=== PATIENT | female | born 1985 | race Caucasian/White ===

== ENCOUNTER → 2020-10-14 16:00 | Outpatient (BNVA) | payer MEDICAID, SELFPAY | PROVIDERS: Family Provider Internal Medicine; PCP Internal Medicine; Visit Provider Nurse Practitioner Family | DX: N30.20 Other chronic cystitis without hematuria (principal); B37.3 Candidiasis of vulva and vagina; R11.0 Nausea | CPT/HCPCS: 81003; 87077; 87086; 87184 ==

== ENCOUNTER → 2020-11-05 08:55 | Outpatient (BNVA) | payer MEDICAID, SELFPAY | PROVIDERS: Family Provider Internal Medicine; PCP Internal Medicine; Visit Provider Urology | DX: N30.20 Other chronic cystitis without hematuria (principal) | CPT/HCPCS: 81003 ==

== ENCOUNTER → 2021-01-13 15:52 | Outpatient (BNVA) | payer MEDICAID, SELFPAY | PROVIDERS: Family Provider Internal Medicine; PCP Internal Medicine; Visit Provider Urology | DX: N30.20 Other chronic cystitis without hematuria (principal) | CPT/HCPCS: 81003 ==

== ENCOUNTER → 2021-03-02 11:32 | Outpatient (BNVA) | payer MEDICAID, SELFPAY | PROVIDERS: Family Provider Internal Medicine; PCP Internal Medicine; Visit Provider Family Medicine | DX: Z01.812 Encounter for preprocedural laboratory examination (principal); Z20.822 Contact with and (suspected) exposure to COVID-19 | CPT/HCPCS: 87635 ==

== ENCOUNTER → 2021-03-30 12:08 | Outpatient (BNVA) | payer MEDICAID, SELFPAY | PROVIDERS: Family Provider Internal Medicine; PCP Internal Medicine; Visit Provider Urology | DX: N30.20 Other chronic cystitis without hematuria (principal); R30.0 Dysuria | CPT/HCPCS: 87077; 87086; 87184 ==

== ENCOUNTER 2021-04-01 14:16 | Outpatient (CLI) | payer MEDICAID, SELFPAY ==
[2021-04-01 14:45] LABS: Basophils % 0.6 %; Eosinophils # 0.1 10^3/uL (0.0-0.8); Hematocrit 43.8 % (37.0-47.0); Hemoglobin 14.2 g/dL (11.5-15.3); Lymphocytes # 2.6 10^3/uL (0.8-4.8); Lymphocytes % 36.8 %; Mean Corpuscular HGB Conc 32.4 g/dL (30.0-36.0); Mean Corpuscular Hemoglobin 31.8 pg (28.0-34.0); Mean Platelet Volume 9.8 fL (7.4-10.4); Monocytes # 0.4 10^3/uL (0.2-0.9); Monocytes % 6.1 %; Neutrophils # 3.81 10^3/uL (1.8-7.7); Neutrophils % 54.4 %; Nucleated Red Blood Cells % 0 %; Platelet Count 334 10^3/cmm (130-400); Red Blood Count 4.47 10^6/uL (4.1-5.3); Red Cell Distribution Width 11.4 % (12.1-15.1)
== END 2021-04-01 14:17 | disposition home or self-care (01) ==
LOC: LAB 14:21
PROVIDERS: PCP Internal Medicine; Visit Provider Urology
DX: N30.20 Other chronic cystitis without hematuria (principal)
CPT/HCPCS: 81003; 85025

== ENCOUNTER → 2021-04-22 14:54 | Outpatient (BNVA) | payer MEDICAID, SELFPAY | PROVIDERS: PCP Internal Medicine; Visit Provider Nurse Practitioner Family | DX: N30.20 Other chronic cystitis without hematuria (principal) | CPT/HCPCS: 81003 ==

== ENCOUNTER 2021-06-23 16:42 | Emergency (ER) | payer MEDICAID, SELFPAY ==
[2021-06-23 16:57] VITALS: BP 137/100; PULSE 114; RESP 22; TEMP 36.9; O2SAT 97; BMI 22.1
--- NOTE | 2021-06-23 19:07 | CTR_ITS ---
PROCEDURE INFORMATION: Exam: CT Abdomen And Pelvis With Contrast Exam date and time: 06/23/2021 8:57 PM Age: 35 years old Clinical indication: Abdominal pain; Prior surgery; Surgery date: 6+ months; Additional info: Abd pain TECHNIQUE: Imaging protocol: Computed tomography of the abdomen and pelvis with contrast. Radiation optimization: All CT scans at this facility use at least one of these dose optimization techniques: automated exposure control; mA and/or kV adjustment per patient size (includes targeted exams where dose is matched to clinical indication); or iterative reconstruction. Contrast material: OMNI 300; Contrast volume: 95 ml; Contrast route: INTRAVENOUS (IV); COMPARISON: CT Abdomen/Pelvis Renal [id number] 01/03/2018 5:26 PM RADIATION DOSE METRICS: Total DLP (mGy-cm): 1284.52 FINDINGS: Liver: Left hepatic lobe 13 mm cystic structure similar dating back to 05/31/2017 exam, likely benign given stability Gallbladder and bile ducts: Mild intrahepatic biliary dilation. Cholecystectomy. Pancreas: Normal. No ductal dilation. Spleen: Normal. No splenomegaly. Adrenal glands: Normal. No mass. Kidneys and ureters: Left kidney cyst, negative for follow-up. Right kidney punctate nonobstructing calyceal stone. Stomach and bowel: Unremarkable. No obstruction. No mucosal thickening. Appendix: No evidence of appendicitis. Intraperitoneal space: Unremarkable. No free air. No significant fluid collection. Vasculature: Unremarkable. No abdominal aortic aneurysm. Lymph nodes: Unremarkable. No enlarged lymph nodes. Urinary bladder: Unremarkable as visualized. Reproductive: Several left ovarian cysts measuring up to 2.7 cm without surrounding inflammation, likely follicular. Bones/joints: Unremarkable. No acute fracture. Soft tissues: Unremarkable. CT/CT abdomen pelvis w con* [id number] IMPRESSION: 1. Negative for acute inflammatory process in the abdomen or pelvis. 2. Left hepatic lobe 13 mm cystic structure similar dating back to 05/31/2017 exam, likely benign given stability 3. Mild intrahepatic biliary dilation. 4. Cholecystectomy. 5. Several left ovarian cysts measuring up to 2.7 cm without surrounding inflammation, likely follicular. 6. Left kidney cyst, negative for follow-up. 7. Right kidney punctate nonobstructing calyceal stone.
--- NOTE | 2021-06-23 19:08 | ED_ITS ---
HPI - Abdominal Pain General: Chief Complaint: Abdominal Pain Stated Complaint: sent by blood pressure issue/pain in r abdomen Time Seen by Provider: 06/23/21 19:03 Source: patient Mode of arrival: ambulatory Limitations: no limitations History of Present Illness: 35-year-old female has a history of multiple abdominal surgeries. She states that over the last week she been having increasing diffuse abdominal pain with vomiting and diarrhea. She states that she has had her gallbladder out with a hysterectomy and has been told she has had adhesions in the past. States the pain is diffuse rates it an 8 out of 10 currently. States no real worsening factor states that seems to be improved by laying on her left side. Denies any radiation of her pain Associated Symptoms: Reports nausea and vomiting; Denies chills, dysuria and fever(s) Review of Systems Const: Denies: fever(s), chills, body aches or change in appetite Eyes: Denies: blurry vision or eye discomfort ENMT: Denies: throat pain or dental pain Card: Denies: chest pain Resp: Denies: dyspnea GI: Reports: abdominal pain, nausea and vomiting : Denies: dysuria Musc: Denies: neck pain or back pain Skin/Breast: Denies: rash Neuro: Denies: headache(s) Psych: Denies: depression Jeremiah/Lymph: Denies: easy bruising All/Imm: Denies: urticaria PFSH ED PFSH: Medical History Chronic cystitis Yeast vaginitis Family History Mother Autoimmune disorder Social History Smoking and tobacco status: never smoked Alcohol intake: unknown Adopted: No Caregiver/support person: No Lives independently: No Marital status: Current occupational status: employed History of recent travel: No Physical Exam Const: COMMON NORMALS: no acute distress, patient oriented x3 and healthy appearing HENMT: COMMON NORMALS: normocephalic and atraumatic HEAD & SCALP: normocephalic and atraumatic Eye: COMMON NORMALS: Equal, round and reactive pupils present and EOMs intact bilaterally PUPIL: Yes Equal, round and reactive pupils present Neck/C-Spine: COMMON NORMALS: full ROM and supple Chest: COMMONS NORMALS: normal inspection of the chest and normal palpation of entire chest wall Resp: COMMON NORMALS: normal respiratory effort, No retractions, No use of accessory muscles and clear to auscultation bilaterally AUSCULTATION: clear to auscultation bilaterally Cardio: COMMON NORMALS: regular rhythm and No murmurs present (Cardio) RATE: tachycardic RHYTHM: regular rhythm GI: COMMON NORMALS: Normal to inspection, nondistended, normoactive bowel sounds present, Soft to palpation and no masses PALPATION: Yes Soft to palpation OTHER: Diffuse moderate tenderness Extremity: COMMON NORMALS: normal to inspection and full ROM Neuro: COMMON NORMALS: patient oriented x3, moves all extremities and no focal motor deficits Psych: COMMON NORMALS: mental status grossly normal, Normal thought process present and cooperative THOUGHT PROCESS: Normal thought process present Skin: COMMON NORMALS: no rashes or lesions noted and no wounds GENERAL SKIN EXAM: no rashes or lesions noted Course Vital Signs: Vital signs: Vital Signs Temperature 98.5 F 06/23/21 16:57 Pulse Rate 107 H 06/23/21 19:32 Respiratory Rate 18 06/23/21 19:32 Blood Pressure 124/90 06/23/21 19:32 Pulse Oximetry 95 06/23/21 19:32 MDM - Abdominal Pain Medical Decision Making Patient presents with abdominal pain CT does show a small ovarian cyst no other findings noted patient's blood work here is normal she has no signs of acute surgical abdomen no signs of ovarian torsion will prescribe her pain meds for home and have her follow-up with SITE INTERPRETER she is return if worsening she understands and agrees to plan. Lab Data : 06/23/21 19:19 06/23/21 19:19 Labs/Radiology: Radiology Impressions Abdomen/Pelvis CT 06/23/21 19:07 IMPRESSION: 1. Negative for acute inflammatory process in the abdomen or pelvis. 2. Left hepatic lobe 13 mm cystic structure similar dating back to 05/31/2017 exam, likely benign given stability 3. Mild intrahepatic biliary dilation. 4. Cholecystectomy. 5. Several left ovarian cysts measuring up to 2.7 cm without surrounding inflammation, likely follicular. 6. Left kidney cyst, negative for follow-up. 7. Right kidney punctate nonobstructing calyceal stone. Laboratory Results WBC 9.5 10^3/uL (4.0-10.0) 06/23/21 19:19 RBC 4.46 10^6/uL (4.1-5.3) 06/23/21 19:19 Hgb 14.3 g/dL (11.5-15.3) 06/23/21 19:19 Hct 43.2 % (37.0-47.0) 06/23/21 19:19 MCV 96.9 fl (81-99) 06/23/21 19:19 MCH 32.1 pg (28.0-34.0) 06/23/21 19:19 MCHC 33.1 g/dL (30.0-36.0) 06/23/21 19:19 RDW 11.7 % (12.1-15.1) L 06/23/21 19:19 Plt Count 339 10^3/cmm (130-400) 06/23/21 19:19 MPV 9.0 fL (7.4-10.4) 06/23/21 19:19 Neut % (Auto) 72.0 % 06/23/21 19:19 Lymph % (Auto) 22.5 % 06/23/21 19:19 [place] % (Auto) 4.3 % 06/23/21 19:19 Eos % (Auto) 0.6 % 06/23/21 19:19 Baso % (Auto) 0.4 % 06/23/21 19:19 Neut # (Auto) 6.83 10^3/uL (1.8-7.7) 06/23/21 19:19 Lymph # (Auto) 2.1 10^3/uL (0.8-4.8) 06/23/21 19:19 [place] # (Auto) 0.4 10^3/uL (0.2-0.9) 06/23/21 19:19 Eos # (Auto) 0.1 10^3/uL (0.0-0.8) 06/23/21 19:19 Baso # (Auto) 0.0 10^3/uL (0.0-0.1) 06/23/21 19:19 Nucleated RBC % (auto) 0 % 06/23/21 19:19 Nucleated RBCs # 0.0 /100WBC 06/23/21 19:19 Sodium 138 mmol/L (136-145) 06/23/21 19:19 Potassium 5.0 mmol/L (3.5-5.1) 06/23/21 19:19 Chloride 102 mmol/L (98-107) 06/23/21 19:19 Carbon Dioxide 24 mmol/L (22-29) 06/23/21 19:19 Anion Gap 17.0 (5-19) 06/23/21 19:19 BUN 7 mg/dL (6-20) 06/23/21 19:19 Creatinine 0.7 mg/dL (0.5-0.9) 06/23/21 19:19 GFR Calculation 94.7 mL/min (90-130) 06/23/21 19:19 Glucose 106 mg/dL (65-115) 06/23/21 19:19 Calculated Osmolality 284 mOsm/kg (285-295) L 06/23/21 19:19 Calcium 10.2 mg/dL (8.5-10.5) 06/23/21 19:19 Total Bilirubin 0.3 mg/dL (0.15-1.2) 06/23/21 19:19 AST 28 U/L (0-32) 06/23/21 19:19 ALT 74 U/L (0-33) H 06/23/21 19:19 Alkaline Phosphatase 135 IU/L (35-105) H 06/23/21 19:19 Total Protein 7.6 g/dL (6.6-8.7) 06/23/21 19:19 Albumin 5.0 g/dL (3.5-5.2) 06/23/21 19:19 Globulin 2.6 g/dL (1.3-4.6) 06/23/21 19:19 Lipase 10 U/L (13-60) L 06/23/21 19:19 Urine Color Yellow (Yellow) 06/23/21 20:38 Urine Appearance Clear (CLEAR) 06/23/21 20:38 Urine pH 6 (5-7) 06/23/21 20:38 Ur Specific [place] 1.010 (1.005-1.030) 06/23/21 20:38 Urine Protein Neg (Negative) 06/23/21 20:38 Urine Glucose (UA) Norm (Normal) 06/23/21 20:38 Urine Ketones Negative (Negative) 06/23/21 20:38 Urine Blood Neg (Negative) 06/23/21 20:38 Urine Nitrate Negative (Negative) 06/23/21 20:38 Urine Bilirubin Neg (Negative) 06/23/21 20:38 Urine Urobilinogen Neg mg/dL (Negative) 06/23/21 20:38 Ur Leukocyte Esterase Negative (Negative) 06/23/21 20:38 Discharge Plan Discharge Patient Disposition: Home Clinical Impression: Abdominal pain, Ovarian cyst Condition: Stable Prescriptions: New hydrocodone-acetaminophen 5-325 mg tablet 1 tab PO Q6H PRN (Reason: pain) Qty: 14 0RF ondansetron 4 mg tablet,disintegrating 4 mg PO Q6H PRN (Reason: nausea and vomiting) Qty: 14 0RF No Action cranberry 500 mg capsule 500 mg PO BID 0RF Rx Instructions: administer with meals mecobalamin (vitamin B12) 5,000 mcg tablet,disintegrating PO 0RF cholecalciferol (vitamin D3) 25 mcg (1,000 unit) capsule 25 mcg PO DAILY 0RF omega-3 fatty acids [Fish Oil Concentrate] 1,000 mg capsule 1,000 mg PO DAILY 0RF zolpidem 10 mg tablet PO DAILY 0RF ropinirole 0.5 mg tablet 0.5 mg PO DAILY 0RF fluconazole 150 mg tablet 150 mg PO DAILY Qty: 5 2RF ondansetron HCl 4 mg tablet See Rx Instructions .ROUTE .COMPLEX Qty: 20 0RF Dose Instruction: TAKE 1 TABLET BY MOUTH EVERY 6 HOURS NEEDED FOR NAUSEA OR VOMITING Rx Instructions: TAKE 1 TABLET BY MOUTH EVERY 6 HOURS NEEDED FOR NAUSEA OR VOMITING ciprofloxacin HCl 500 mg tablet 500 mg PO BID Qty: 60 2RF promethazine 25 mg suppository 25 mg LA Q6H PRN (Reason: nausea and vomiting) Qty: 12 0RF amoxicillin-pot clavulanate [Augmentin] 875-125 mg tablet 1 tab PO BID Qty: 60 2RF Discharge Orders: Discharge ED (Routine); Ordered 06/23/21 Ordered By: Bebo Retana Referrals: Claudette David MD [Physician] - 1-3 days Harjit Romo DO [Primary Care Provider] - Discharge Diet: Advance as tolerated Discharge Activity: Resume usual activity Patient Instructions: Abdominal Pain (ED), Opioid Safety Coding Level of Care Code ED Content Development Manager for Chg Fwd Exam Comprehensive
[2021-06-23 19:25] VITALS: RESP 16
[2021-06-23] MEDS: HYDROmorphone 1 mg/mL INJ 1 mL IVP (19:25)
[2021-06-23] MEDS: ondansetron 2 mg/ML SDV 2 mL 4 MG IVP (19:25)
[2021-06-23] MEDS: sodium chloride 0.9% 1,000 ML 999 ML IV (19:25)
[2021-06-23 19:26] LABS: Basophils % 0.4 %; Eosinophils # 0.1 10^3/uL (0.0-0.8); Eosinophils % 0.6 %; Hematocrit 43.2 % (37.0-47.0); Hemoglobin 14.3 g/dL (11.5-15.3); Lymphocytes # 2.1 10^3/uL (0.8-4.8); Lymphocytes % 22.5 %; Mean Corpuscular HGB Conc 33.1 g/dL (30.0-36.0); Mean Corpuscular Hemoglobin 32.1 pg (28.0-34.0); Mean Corpuscular Volume 96.9 fl (81-99); Monocytes # 0.4 10^3/uL (0.2-0.9); Monocytes % 4.3 %; Neutrophils # 6.83 10^3/uL (1.8-7.7); Nucleated Red Blood Cells % 0 %; Platelet Count 339 10^3/cmm (130-400); Red Blood Count 4.46 10^6/uL (4.1-5.3); Red Cell Distribution Width 11.7 % (12.1-15.1); White Blood Count 9.5 10^3/uL (4.0-10.0)
[2021-06-23 19:32] VITALS: BP 124/90; PULSE 107; RESP 18; O2SAT 95
[2021-06-23 19:46] LABS: Alanine Aminotransferase 74 U/L (0-33); Alkaline Phosphatase 135 IU/L (35-105); Aspartate Amino Transferase 28 U/L (0-32); Blood Urea Nitrogen 7 mg/dL (6-20); Calcium 10.2 mg/dL (8.5-10.5); Carbon Dioxide 24 mmol/L (22-29); Chloride 102 mmol/L (98-107); Globulin 2.6 g/dL (1.3-4.6); Glomerular Filtration Rate 94.7 mL/min (90-130); Glucose 106 mg/dL (65-115); Lipase 10 U/L (13-60); Osmolality Calculated 284 mOsm/kg (285-295); Sodium 138 mmol/L (136-145); Total Bilirubin 0.3 mg/dL (0.15-1.2); Total Protein 7.6 g/dL (6.6-8.7)
[2021-06-23 20:45] LABS: Add Urine Microscopic? NO; Charge for UA Resulting for Rev
[2021-06-23 20:46] LABS: Blood Urine Neg (Negative); Glucose Urine UA Norm (Normal); Ketones Urine Negative (Negative); Protein Urine Neg (Negative); Urine Appearance Clear (CLEAR); Urine Color Yellow (Yellow); pH Urine 6 (5-7)
[2021-06-23 20:47] LABS: Bilirubin Urine Neg (Negative); Leukocyte Esterase Urine Negative (Negative); Nitrate Urine Negative (Negative); Urobilinogen Urine Neg (Negative)
[2021-06-23] MEDS: iohexol 300 mg/mL 100 mL Btl IV (20:56)
[2021-06-23] MEDS: HYDROcodone-acetaminophen 5-325 mg Tablet 1 TAB PO (22:00)
[2021-06-23] MEDS: ondansetron 4 MG Tablet PO (22:00)
[2021-06-23 22:09] VITALS: BP 119/70; PULSE 98; RESP 18; O2SAT 96
--- NOTE | 2021-06-25 12:44 | DCPLANNER ---
Addendum entered by Julienne Adams 06/30/21 09:09: [facility] has tried to contact patient to schedule an appointment has not been able to speak with patient and no voicemail set up to leave a message. Original Note: manager delivery had message to schedule a follow up appointment for patient with [facility]. manager delivery sent patients information to [facility] front office thru the workload messaging system. Patients information will be printed and reviewed. Clinic will call patient with appointment information.
== END 2021-06-23 22:10 | disposition home or self-care (01) ==
PROVIDERS: Nurse Practitioner Family; Emergency Provider Emergency Medicine; PCP Internal Medicine
DX: N83.202 Unspecified ovarian cyst, left side (principal); Z90.49 Acquired absence of other specified parts of digestive tract; Z90.710 Acquired absence of both cervix and uterus
CPT/HCPCS: 74177; 80053; 81003; 83690; 85025; 96361; 96374; 96375; 99284; J1170; J2405; J7030; Q0162; Q9967

== ENCOUNTER → 2021-09-10 14:45 | Outpatient (BNVA) | payer MEDICAID, SELFPAY | PROVIDERS: Visit Provider Obstetrics & Gynecology | DX: R30.0 Dysuria (principal); R10.11 Right upper quadrant pain; R10.9 Unspecified abdominal pain | CPT/HCPCS: 80053; 81000; 85025; 87077; 87086; 87184 ==

== ENCOUNTER → 2021-11-06 09:49 | Outpatient (BNVA) | payer MEDICAID, SELFPAY | PROVIDERS: Visit Provider Nurse Practitioner Family | DX: N30.20 Other chronic cystitis without hematuria (principal) | CPT/HCPCS: 81003; 87086; 99213 ==

== ENCOUNTER → 2021-12-01 15:52 | Outpatient (BNVA) | payer MEDICAID, SELFPAY | PROVIDERS: Visit Provider Urology | DX: R33.9 Retention of urine, unspecified (principal); N30.20 Other chronic cystitis without hematuria; N20.9 Urinary calculus, unspecified; B37.3 Candidiasis of vulva and vagina; R10.9 Unspecified abdominal pain | CPT/HCPCS: 81003 ==

== ENCOUNTER → 2021-12-15 13:10 | Outpatient (BNVA) | payer MEDICAID, SELFPAY | PROVIDERS: Visit Provider Obstetrics & Gynecology | DX: N83.209 Unspecified ovarian cyst, unspecified side (principal); Z90.710 Acquired absence of both cervix and uterus | CPT/HCPCS: 76830 ==

== ENCOUNTER → 2021-12-18 15:53 | Outpatient (BNVA) | payer MEDICAID, SELFPAY | PROVIDERS: Visit Provider Urology | DX: N30.20 Other chronic cystitis without hematuria (principal); R11.0 Nausea; N20.9 Urinary calculus, unspecified | CPT/HCPCS: 81003 ==

== ENCOUNTER → 2022-01-21 15:59 | Outpatient (BNVA) | payer MEDICAID, SELFPAY | PROVIDERS: Visit Provider Urology | DX: N12 Tubulo-interstitial nephritis, not specified as acute or chronic (principal) | CPT/HCPCS: 81003 ==

== ENCOUNTER → 2022-05-06 15:00 | Outpatient (BNVA) | payer MEDICAID, SELFPAY | PROVIDERS: Visit Provider Urology | DX: N30.20 Other chronic cystitis without hematuria (principal) | CPT/HCPCS: 81003 ==

== ENCOUNTER → 2022-07-29 13:51 | Outpatient (BNVA) | payer MEDICAID, SELFPAY | PROVIDERS: Visit Provider Urology | DX: N30.20 Other chronic cystitis without hematuria (principal) | CPT/HCPCS: 81003 ==

== ENCOUNTER → 2024-01-02 09:23 | Outpatient (BNVA) | payer MEDICAID, SELFPAY | PROVIDERS: PCP Family Medicine; Visit Provider Podiatrist Foot & Ankle Surgery | DX: M79.671 Pain in right foot (principal); M79.672 Pain in left foot | CPT/HCPCS: 73630 ==

== ENCOUNTER 2024-01-17 06:56 | Outpatient (CLI) | payer MEDICAID, SELFPAY ==
--- NOTE | 2024-01-17 07:21 | US_ITS ---
WS: [id number] RIGHT UPPER QUADRANT ULTRASOUND HISTORY: ELEVATED LIVER ENZYMES COMPARISON: 01/14/2016 Liver: 15.2 cm in length. Normal size liver and echogenicity. No bile duct dilatation or mass. Portal Vein: Normal hepatopetal flow with monophasic waveform. Gallbladder: Normally distended gallbladder with no stones or wall thickening. CBD: 0.3 cm Pancreas: Normal size and echogenicity. Right kidney: 10.2 cm in length. Normal size and echogenicity. No hydronephrosis or mass. Aorta and IVC: Unremarkable abdominal aorta and IVC. No ascites. US/US abdomen limited [id number] IMPRESSION: Normal right upper quadrant ultrasound.
== END 2024-01-17 06:57 | disposition home or self-care (01) ==
LOC: RAD 06:56
PROVIDERS: PCP Family Medicine; Visit Provider Obstetrics & Gynecology
DX: R74.01 Elevation of levels of liver transaminase levels (principal)
CPT/HCPCS: 76705

== ENCOUNTER 2024-03-23 12:57 | Outpatient (CLI) | payer MEDICAID, SELFPAY ==
[2024-03-23 13:47] LABS: Alanine Aminotransferase 72 U/L (0-33); Albumin Level 4.8 g/dL (3.5-5.2); Alkaline Phosphatase 88 U/L (35-105); Anion Gap 13.4 (5-19); Aspartate Amino Transferase 25 U/L (0-32); Blood Urea Nitrogen 11 mg/dL (6-20); Calcium 9.4 mg/dL (8.5-10.5); Carbon Dioxide 27 mmol/L (22-29); Chloride 103 mmol/L (98-107); Globulin 2.3 g/dL (1.3-4.6); Glomerular Filtration Rate 93.2 mL/min (90-130); Glucose 109 mg/dL (65-115); Osmolality Calculated 288 mOsm/kg (285-295); Potassium 4.4 mmol/L (3.5-5.1); Sodium 139 mmol/L (136-145); Total Bilirubin 0.3 mg/dL (0.15-1.2); Total Protein 7.1 g/dL (6.6-8.7)
== END 2024-03-23 12:58 | disposition home or self-care (01) ==
LOC: LAB 12:59
PROVIDERS: PCP Family Medicine; Visit Provider Podiatrist Foot & Ankle Surgery
DX: B35.1 Tinea unguium (principal)
CPT/HCPCS: 36415; 80053

== ENCOUNTER → 2024-04-25 10:28 | Outpatient (BNVA) | payer MEDICAID, SELFPAY | PROVIDERS: PCP Family Medicine; Visit Provider Nurse Practitioner | DX: R39.9 Unspecified symptoms and signs involving the genitourinary system (principal); N12 Tubulo-interstitial nephritis, not specified as acute or chronic | CPT/HCPCS: 81000 ==

== ENCOUNTER 2024-06-18 13:02 | Outpatient (CLI) | payer MEDICAID, SELFPAY ==
--- NOTE | 2024-06-18 13:06 | MM_ITS ---
WS: [id number] BILATERAL 3D TOMOSYNTHESIS DIGITAL DIAGNOSTIC MAMMOGRAPHY WITH CAD CLINICAL INFORMATION: N64.9 - Disorder of breast, unspecified HISTORY: Bilateral breast lumps COMPARISON: Baseline TECHNIQUE: Bilateral CC, MLO, and ML views. FINDINGS: The breasts are composed of heterogeneous fibroglandular density, which can limit the detection of small underlying mass lesions. Bilateral breast implants appear intact. Overall small amount of residual breast tissue. No suspicious abnormalities deep to the palpable markers. Ultrasound is pending. ULTRASOUND BREAST BILATERAL TECHNIQUE: Ultrasound bilateral breast focused area of concern. CLINICAL INFORMATION: N64.9 - Disorder of breast, unspecified FINDINGS: RIGHT BREAST: Ultrasound RIGHT axilla area of pain. No underlying abnormalities in this area. LEFT BREAST: Ultrasound LEFT breast area of lump at the 12 o'clock position demonstrates a small amount of implant ridging/outpouching in this area which corresponds to the palpable abnormality. No other suspicious findings. Ultrasound LEFT breast at the 2 o'clock position 8 cm from the nipple demonstrates no underlying abnormalities in this area. MM/MM diag tomosynthesis [id number] IMPRESSION: DENSITY: The breasts are heterogeneously dense, which may obscure small masses. BI-RADS: 2 - Benign FOLLOW UP: 1 Year Follow-up Recommend return to annual screening mammography.
--- NOTE | 2024-06-18 13:45 | US_ITS ---
WS: [id number] BILATERAL 3D TOMOSYNTHESIS DIGITAL DIAGNOSTIC MAMMOGRAPHY WITH CAD CLINICAL INFORMATION: N64.9 - Disorder of breast, unspecified HISTORY: Bilateral breast lumps COMPARISON: Baseline TECHNIQUE: Bilateral CC, MLO, and ML views. FINDINGS: The breasts are composed of heterogeneous fibroglandular density, which can limit the detection of small underlying mass lesions. Bilateral breast implants appear intact. Overall small amount of residual breast tissue. No suspicious abnormalities deep to the palpable markers. Ultrasound is pending. ULTRASOUND BREAST BILATERAL TECHNIQUE: Ultrasound bilateral breast focused area of concern. CLINICAL INFORMATION: N64.9 - Disorder of breast, unspecified FINDINGS: RIGHT BREAST: Ultrasound RIGHT axilla area of pain. No underlying abnormalities in this area. LEFT BREAST: Ultrasound LEFT breast area of lump at the 12 o'clock position demonstrates a small amount of implant ridging/outpouching in this area which corresponds to the palpable abnormality. No other suspicious findings. Ultrasound LEFT breast at the 2 o'clock position 8 cm from the nipple demonstrates no underlying abnormalities in this area. US/US breast BI limited* [id number] IMPRESSION: DENSITY: The breasts are heterogeneously dense, which may obscure small masses. BI-RADS: 2 - Benign FOLLOW UP: 1 Year Follow-up Recommend return to annual screening mammography.
== END 2024-06-18 13:03 | disposition home or self-care (01) ==
LOC: RAD 13:04
PROVIDERS: PCP Family Medicine; Visit Provider Nurse Practitioner Women's Health
DX: N64.89 Other specified disorders of breast (principal); R92.323 Mammographic fibroglandular density, bilateral breasts; Z98.82 Breast implant status
CPT/HCPCS: 76642; 77062; G0279

== ENCOUNTER 2024-07-30 16:03 | Outpatient (CLI) | payer MEDICAID, SELFPAY ==
--- NOTE | 2024-07-30 16:05 | CT_ITS ---
WS: [id number] CT ABDOMEN AND PELVIS NONCONTRAST HISTORY: LEFT RENAL STONE TECHNIQUE: Imaging performed through the abdomen and pelvis. Coronal and sagittal reformats are submitted. All CT scans at [facility] use at least one of these dose optimization techniques: automated exposure control; mA and/or kV adjustment per patient size (includes targeted exams where dose is matched to clinical indication); or iterative reconstruction. DLP: 241.04 mGy.cm COMPARISON: 06/23/2021 Lower thorax: Lung bases are clear. Bilateral breast implants. Normal size heart. Liver: 10 mm low-attenuation area inferior RIGHT lobe of the liver noted to be a hemangioma on a prior exam. Gallbladder: Prior cholecystectomy. Pancreas: Normal size and attenuation. Normal pancreatic duct. No pancreatitis or mass. Spleen: Normal. Adrenal glands: Normal. No mass. Right kidney: Nonobstructing 2 mm calcification mid kidney. Left kidney: Normal size kidney with no mass or hydronephrosis. Aorta: Normal abdominal aorta, no aneurysm or atherosclerosis. No free fluid, intraperitoneal air or significant lymphadenopathy. GI tract: No obstruction. Marked diffuse constipation. Appendix is not definitely identified. Abdominal wall: Negative. No hernia. Pelvis: No free fluid. Status post hysterectomy. Uterus is not identified. Large bilateral adnexal masses are identified. The largest on the RIGHT measures 9.6 x 6.8 cm. LEFT adnexal mass measures 4.4 x 3.9 cm. These are probably ovarian cysts. Osseous structures: Unremarkable. CT/CT kidney stone [id number] IMPRESSION: 1. No LEFT renal calcifications or renal obstruction. 2. No ureteral calcifications. 3. Large bilateral adnexal cystic masses. These are likely ovarian in etiology . Recommend evaluation by pelvic ultrasound due to their large size. Largest on the RIGHT measures 9.6 x 6.8 cm. 4. Diffuse constipation.
== END 2024-07-30 16:04 | disposition home or self-care (01) ==
LOC: RAD 16:04
PROVIDERS: PCP Family Medicine; Visit Provider Family Medicine
DX: N20.0 Calculus of kidney (principal); R93.89 Abnormal findings on diagnostic imaging of other specified body structures; K59.00 Constipation, unspecified; Z98.82 Breast implant status; D18.09 Hemangioma of other sites; Z90.49 Acquired absence of other specified parts of digestive tract; N28.89 Other specified disorders of kidney and ureter; Z98.890 Other specified postprocedural states
CPT/HCPCS: 74176

== ENCOUNTER 2024-08-24 14:26 | Outpatient (CLI) | payer MEDICAID, SELFPAY ==
--- NOTE | 2024-08-24 14:29 | USR_ITS ---
PROCEDURE INFORMATION: Exam: US Pelvis, Complete, Non-Obstetric Exam date and time: 08/24/2024 3:26 PM Age: 38 years old Clinical indication: Abnormal findings; Abnormal imaging test; Additional info: Abnormal abdominal CT TECHNIQUE: Imaging protocol: Transabdominal pelvic nonobstetric ultrasound. Complete exam. Real time ultrasound with image documentation. COMPARISON: 1. CT kidney stone [id number] 07/30/2024 4:13 PM 2. US transvaginal [id number] 12/15/2021 1:15 PM FINDINGS: Uterus: Status post hysterectomy. Complex left adnexal structure with internal echoes measuring 4.9 x 4.2 x 5.4 cm on transabdominal imaging in 3.5 x 4.3 x 4.2 cm on transvaginal imaging. Along the periphery, there is mixed cystic and solid component which measures 2.4 x 2.4 x 1.6 cm. Right ovary/adnexa: Anechoic cystic structure in the right adnexa measuring 6.6 x 7.3 x 8.9 cm. Ovoid solid component along the periphery of the cystic lesion measures 1.7 x 1.1 x 1.5 cm and has waveforms on color Doppler imaging, likely in the right ovary. Left ovary/adnexa: The left ovary measures 4.2 x 4.3 x 3.5 cm (33.0 mL). Vagina: Vaginal cuff appears unremarkable. Intraperitoneal space: No intraperitoneal fluid. Urinary bladder: Small echoes within the urinary bladder. US/US pelv w/transvag [id number] IMPRESSION: 1. Complex left ovarian cystic structure has imaging characteristics of a hemorrhagic cyst. However, there is a mixed cystic and solid component along the periphery which is incompletely characterized. While this may be part of the hemorrhagic cyst, underlying neoplasm can not be entirely excluded. Recommend 6-12 week follow-up to ensure resolution. If the cyst is unchanged, then hemorrhagic cyst is unlikely, and continued follow-up with either US or MR should then be considered. If these studies do not confirm an endometrioma or dermoid, then surgical evaluation should be considered. 2. 8.9 cm right adnexal cystic structure. Attention on follow-up recommended.
== END 2024-08-24 14:27 | disposition home or self-care (01) ==
LOC: RAD 14:28
PROVIDERS: PCP Family Medicine; Visit Provider Family Medicine
DX: R93.5 Abnormal findings on diagnostic imaging of other abdominal regions, including retroperitoneum (principal); Z90.710 Acquired absence of both cervix and uterus; R93.89 Abnormal findings on diagnostic imaging of other specified body structures
CPT/HCPCS: 76830; 76856

== ENCOUNTER → 2024-12-14 18:10 | Outpatient (BNVA) | payer MEDICAID, SELFPAY | PROVIDERS: PCP Family Medicine | DX: R39.9 Unspecified symptoms and signs involving the genitourinary system (principal); R30.0 Dysuria | CPT/HCPCS: 81000; 87086 ==

== ENCOUNTER 2025-01-02 11:31 | Outpatient (CLI) | payer MEDICAID, SELFPAY ==
--- NOTE | 2025-01-02 11:38 | XR_ITS ---
WS: [id number] KUB, AP view, 01/02/2025 Clinical Data: R10.A2 - Flank pain, left side Comparison: KUB, 06/08/2017. Findings: No abnormal intraabdominal masses or calcifications are seen. There is no dilatated small bowel or evidence of obstruction. There is a moderate amount of fecal material throughout the colon. There are cholecystectomy clips in the right upper quadrant. XR/XR KUB [id number] Impression: Moderate amount of fecal material in the colon.
== END 2025-01-02 11:32 | disposition home or self-care (01) ==
PROVIDERS: PCP Family Medicine; Visit Provider Nurse Practitioner Women's Health
DX: R10.A2 Flank pain, left side (principal); R31.9 Hematuria, unspecified; R30.0 Dysuria; N30.20 Other chronic cystitis without hematuria; N12 Tubulo-interstitial nephritis, not specified as acute or chronic; Z90.49 Acquired absence of other specified parts of digestive tract
CPT/HCPCS: 74018; 84315; 87086

== ENCOUNTER 2025-01-16 07:32 | Outpatient (CLI) | payer MEDICAID, SELFPAY ==
--- NOTE | 2025-01-16 08:00 | USR_ITS ---
PROCEDURE INFORMATION: Exam: US Pelvis, Complete, Non-Obstetric Exam date and time: 01/16/2025 8:09 AM Age: 39 years old Clinical indication: Pelvic pain; Additional info: Z87.42 - personal history of other diseases of the female. . . TECHNIQUE: Imaging protocol: Transabdominal pelvic nonobstetric ultrasound. Complete exam. Real time ultrasound with image documentation. COMPARISON: US pelv w/transvag [id number] 10/03/2024 8:32 AM FINDINGS: Uterus: Surgically absent. Right ovary/adnexa: The ovary is not identified. Cystic lesion with homogeneous internal low-level echoes in the region of the right ovary, now measures 9.4 x 7.0 x 7.7 cm, previously 6.6 x 5.6 x 7.9 cm. Left ovary/adnexa: The ovary is not identified. Intraperitoneal space: No visible pelvic free fluid. Urinary bladder: Unremarkable on limited views. US/US pelv w/transvag [id number] IMPRESSION: 1. Nonvisualized bilateral ovaries. Cystic lesion with homogeneous internal low-level echoes in the region of the right ovary, increased in size now measuring 9.4 x 7.0 x 7.7 cm (previously 6.6 x 5.6 x 7.9 cm). This could represent an endometrioma or hemorrhagic cyst however interval growth raises concern for a persistent or enlarging complex cystic mass. Recommend gynecologic evaluation if not already obtained and consider dedicated pelvic MRI for further characterization given interval growth and lack of clear ovarian identification. 2. Status post hysterectomy.
== END 2025-01-16 07:33 | disposition home or self-care (01) ==
LOC: RAD 07:35
PROVIDERS: PCP Family Medicine; Visit Provider Nurse Practitioner Women's Health
DX: Z87.42 Personal history of other diseases of the female genital tract (principal); N83.291 Other ovarian cyst, right side; Z90.710 Acquired absence of both cervix and uterus
CPT/HCPCS: 76830; 76856

== ENCOUNTER 2025-02-05 14:23 | Outpatient (CLI) | payer MEDICAID, SELFPAY ==
--- NOTE | 2025-02-05 14:30 | MRR_ITS ---
PROCEDURE INFORMATION: Exam: MR Pelvis Without and With Contrast Exam date and time: 02/05/2025 2:44 PM Age: 39 years old Clinical indication: Abdominal pain; Right lower quadrant; Prior surgery; Surgery date: 6+ months; Surgery type: Partial hysteretomy, gb, scar tissue removal; Additional info: R10.9 - unspecified abdominal pain TECHNIQUE: Imaging protocol: Magnetic resonance imaging of the pelvis without and with contrast. Contrast material: MULTIHANCE; Contrast volume: 14 ml; Contrast route: INTRAVENOUS (IV); COMPARISON: US pelv w/transvag [id number] 01/16/2025 8:09 AM FINDINGS: Intraperitoneal space: No free fluid. Urinary bladder: Bladder is unremarkable. Reproductive: The left ovary contains multiple follicular cysts with the largest measuring 2.5 cm in diameter. There is evidence of previous partial hysterectomy. Lymph nodes: No enlarged nodes. Bones/joints: There is a 2.8 cm diameter rounded cyst lying immediately posterior and distal to the coccyx. The cyst demonstrates mild surrounding edema and demonstrates wall enhancement with IV contrast. Soft tissues: Unremarkable. Other findings: There is a 10 cm diameter rounded, thin walled cyst lying in the right-side of the pelvis. The cyst demonstrates a very thin, smooth wall and contains slightly proteinaceous or hemorrhagic fluid. MR/MR pelvis wo/w con [id number] IMPRESSION: 1. 10 cm right pelvic cyst. I favor this to represent a slightly hemorrhagic ovarian cyst. 2. 2.8 cm inflamed cyst lying adjacent coccyx most likely representing pilonidal cyst. I can not exclude abscess.
[2025-02-05] MEDS: gadobenate dimeglumine 20 mL vial 14 ML IV (15:23)
== END 2025-02-05 14:24 | disposition home or self-care (01) ==
LOC: RAD 14:23
PROVIDERS: PCP Family Medicine; Visit Provider Nurse Practitioner Women's Health
DX: R10.9 Unspecified abdominal pain (principal); N83.291 Other ovarian cyst, right side; R60.0 Localized edema; Z90.711 Acquired absence of uterus with remaining cervical stump; M85.68 Other cyst of bone, other site
CPT/HCPCS: 72197

== ENCOUNTER 2025-02-20 08:43 | Outpatient (CLI) | payer MEDICAID, SELFPAY ==
--- NOTE | 2025-02-20 08:49 | CTR_ITS ---
PROCEDURE INFORMATION: Exam: CT Abdomen And Pelvis Without And With Contrast Exam date and time: 02/20/2025 9:33 AM Age: 39 years old Clinical indication: Microscopic hematuria x 6 months, seeing a urologist in [place] TECHNIQUE: Imaging protocol: Computed tomography of the abdomen and pelvis without and with contrast. 3D rendering (Not supervised by radiologist): MIP and/or 3D reconstructed images were created by the technologist. Radiation optimization: All CT scans at this facility use at least one of these dose optimization techniques: automated exposure control; mA and/or kV adjustment per patient size (includes targeted exams where dose is matched to clinical indication); or iterative reconstruction. Contrast material: OMNIPAQUE 350; Contrast volume: 100 ml; Contrast route: INTRAVENOUS (IV); COMPARISON: MR pelvis wo/w con [id number] 02/05/2025 2:44 PM RADIATION DOSE METRICS: Total DLP (mGy-cm): 885.06 FINDINGS: Lungs: Partially visualized lung bases are clear. Visualized chest includes: No abnormal findings. Liver: Normal in size. No focal lesions. Gallbladder and biliary ducts: Patient is status post cholecystectomy. There is no intrahepatic or extrahepatic biliary ductal dilatation. Pancreas: Normal. No ductal dilation. Spleen: Normal. No splenomegaly. Adrenal glands: Normal. No mass. Kidneys and ureters: Bilateral kidneys are normal in size and homogeneous in enhancement characteristics. No hydronephrosis or genitourinary tract calculus or obstruction. There is a small cyst in the upper pole of the left kidney measuring 1 cm. Stomach and bowel: There is no evidence for bowel obstruction. No bowel wall thickening is seen. There is sigmoid diverticulosis. No evidence for acute diverticulitis. Appendix: No evidence of appendicitis. Intraperitoneal space: Unremarkable. No free air. No significant fluid collection. Vasculature: Unremarkable. No abdominal aortic aneurysm. Lymph nodes: Unremarkable. No enlarged lymph nodes. Urinary bladder: Unremarkable as visualized. Reproductive: There is a large right ovarian cystic lesion measuring 8.9 cm. This is similar to the prior exam of 01/16/2025. This may reflect a hemorrhagic cyst although a endometrioma can not be excluded. Follow-up with ultrasound in 3-6 months is recommended to confirm stability. There has been a hysterectomy. Bones/joints: Unremarkable. No acute fracture. Soft tissues: There are bilateral breast implants. CT/CT abdomen pelvis wo/w [id number] IMPRESSION: 1. No acute intra-abdominal or pelvic pathology. 2. Small cyst in the left kidney. No follow-up imaging is required. 3. Large right ovarian cyst. This was described as an endometrioma on the prior exam of 01/16/2025. Hemorrhagic cyst was also considered in the differential diagnosis and neoplasm could not be excluded. This abnormality should be followed up with ultrasound in 3-6 months to confirm stability. Management of incidental adnexal cysts: Premenopausal patient: Greater than 5 cm: Benign simple cyst. Follow-up in 2-6 months for resolution. MRI recommended if the cyst does not resolve at 1st follow-up. COMMENTS: Journal of the [employer]. Volume 17, Issue 2 [id number]. April 2019. Management of incidental adnexal findings on CT and MRI: A White Paper of the ACR incidental findings committee. Bosniak I and II: No follow-up is typically required unless the cyst becomes symptomatic. These cysts are considered benign and have a very low risk of malignancy. COMMENTS: Consistent with the [employer]'s Incidental Findings Committee white paper (J Am Mercedes [employer]iol 2018): Any incidental renal lesion less than 1 cm or classified as too small to characterize, or any incidental cystic renal lesion characterized as simple-appearing, is likely benign. No follow-up imaging is recommended for these lesions per consensus recommendations based on imaging criteria.
[2025-02-20] MEDS: iohexol 350 mg/mL 500 mL Btl (per mL) IV (09:36)
== END 2025-02-20 08:44 | disposition home or self-care (01) ==
LOC: RAD 08:44
PROVIDERS: PCP Family Medicine; Visit Provider Family Medicine
DX: R31.29 Other microscopic hematuria (principal); Z90.49 Acquired absence of other specified parts of digestive tract; N28.1 Cyst of kidney, acquired; K57.31 Diverticulosis of large intestine without perforation or abscess with bleeding; Z90.710 Acquired absence of both cervix and uterus; N83.201 Unspecified ovarian cyst, right side
CPT/HCPCS: 74178